=== PATIENT | female | born 1995 | race Caucasian/White ===

== ENCOUNTER 2018-09-17 17:00 | Emergency (ER) ==
[2018-09-17 17:03] VITALS: TEMP 98.3; BMI 24.4
--- NOTE | 2018-09-17 18:04 | ED.PDOC ---
General ED Provider: Dr. DAVID ESQUEDA Chief Complaint: Bite Stated Complaint: Believes bitten by spider. Works at [employer] and has developed redness and swelling on Lt forearm. Onset this past Tuesday when she sustained a spider bite but never saw a spider. Similar problem Rt forearm last year. Area of redness and swelling now extending beyond initial border she marked with redness volar aspect forearm moving proximal. Is 25 weeks . Time Seen by Physician: 16:00 Mode of Arrival: Walk-In Information Source: Patient Exam Limitations: No limitations Nursing and Triage Documentation Reviewed and Agree: Yes Does patient meet sepsis criteria?: No System Inflammatory Response Syndrome: Not Applicable Sepsis Protocol: For patient's 13 years and over: Temp is 96.8 and below OR 101 and greater Pulse >90 BPM Resp >20/minute Acutely Altered Mental Status Are patient's symptoms suggestive of a new infection, such as: -Pneumonia -Skin, Soft Tissue -Endocarditis -UTI -Bone, Joint Infection -Implantable Device -Acute Abdominal Infection -Wound Infection -Meningitis -Blood Stream Catheter Infection -Unknown Skin Complaint Exam - Skin/Soft Tissue Complaint/Exam Symptoms Are: Worse Timing: Constant Initial Severity: Moderate Current Severity: Severe Location: distal mid lt forearm Character: Reports: Redness, Swelling, Raised, Painful Aggravating: Reports: Unknown Alleviating: Reports: None Associated Signs and Symptoms: Reports: Tenderness, Red streaks Related History: Reports: Similar episode (lt forearm last year) Related Surgical History: Reports: None Recent Exposure to Others w/Similar Symptoms: No Skin Findings: Present: Erythema, Induration, Fluctuant mass (2X2 cm Fluctuant small central site susp for bite) Differential Diagnoses: Abscess, Cellulitis, MRSA, Other (Spider Bite) Review of Systems - Review Of Systems Constitutional: Reports: No symptoms Eyes: Reports: No symptoms Ears, Nose, Mouth, Throat: Reports: No symptoms Respiratory: Reports: No symptoms Cardiac: Reports: No symptoms GI: Reports: No symptoms : Reports: No symptoms Musculoskeletal: Reports: No symptoms Skin: Reports: Lesions, Lumps Neurological: Reports: No symptoms Endocrine: Reports: No symptoms Hematologic/Lymphatic: Reports: No symptoms All Other Systems: Reviewed and Negative Past Medical History - Past Medical History Previously Healthy: Yes Endocrine: Reports: None Cardiovascular: Reports: None Respiratory: Reports: None Hematological: Reports: None Gastrointestinal: Reports: None Genitourinary: Reports: None Neuro/Psych: Reports: None Musculoskeletal: Reports: None Cancer: Reports: None Last Menstrual Period: 07/06/18 - Surgical History General Surgical History: Reports: None - Family History Family History: Reports: None - Social History Smoking Status: Never smoker Hx Substance Use: No Alcohol Screening: None Physical Exam - Physical Exam Appearance: Well-appearing, No pain distress, Well-nourished Ill-appearing: None Pain Distress: Moderate Eyes: DEBRA, EOMI, Conjunctiva clear ENT: Ears normal, Nose normal, Oropharynx normal Respiratory: Airway patent, Breath sounds clear, Breath sounds equal, Respirations nonlabored Cardiovascular: RRR, Pulses normal, No rub, No murmur GI/: Soft, Nontender, No masses, Bowel sounds normal, No Organomegaly Musculoskeletal: Normal strength, ROM intact, No edema, No calf tenderness Skin: Warm, Dry, Normal color (Redness mid distal lt forearm volar aspect.) Neurological: Sensation intact, Motor intact, Reflexes intact, Cranial nerves intact, Alert, Oriented Psychiatric: Affect appropriate, Mood appropriate Critical Care Note - Critical Care Note Total Time (mins): 30 Course - Course Hematology/Chemistry: 09/17/18 18:12 09/17/18 18:12 Orders, Labs, Meds: Lab Review 09/17/18 09/17/18 18:12 18:12 WBC 10.99 H RBC 4.15 L Hgb 12.4 Hct 36.1 L MCV 87.0 MCH 29.9 MCHC 34.3 RDW Coeff of Fariha 13.9 Plt Count 257 Immature Gran % (Auto) 0.3 Neut % (Auto) 72.8 Lymph % (Auto) 20.2 Meigs % (Auto) 5.2 Eos % (Auto) 1.2 Baso % (Auto) 0.3 Immature Gran # (Auto) 0.0 Neut # (Auto) 8.0 H Lymph # (Auto) 2.2 Meigs # (Auto) 0.6 Eos # (Auto) 0.1 Baso # (Auto) 0.0 ESR 14 Sodium 133.2 L Potassium 3.92 Chloride 101.7 Carbon Dioxide 22.7 Anion Gap 12.72 BUN 15.5 Creatinine 0.48 L Estimated GFR (MDRD) 163.00 BUN/Creatinine Ratio 32.29 Glucose 87.0 Calcium 9.60 Orders Category Date Time Status BMP [BASIC METABOLIC PANEL] Stat LAB 09/17/18 18:12 Completed CBC W/ AUTO DIFF Stat LAB 09/17/18 18:12 Completed ESR Stat LAB 09/17/18 18:12 Completed Amoxicillin/Potassium Clav [Augmentin 875-125 mg Tab] MEDS 09/17/18 19:18 Discontinued 1 tab PO ONCE STA Medications Discontinued Medications Generic Name Dose Route Start Last Admin Trade Name Arti PRN Reason Stop Dose Admin Amoxicillin/Clavulanate Potassium 1 tab 09/17/18 19:18 09/17/18 19:22 Augmentin 875-125 Mg Tab PO 09/17/18 19:19 1 tab ONCE STA Administration Vital Signs: Temp Pulse Resp BP Pulse Ox 09/17/18 19:03 86 20 118/75 100 09/17/18 17:00 98.3 F 73 18 125/80 99 Departure - Departure Time of Disposition: 19:15 Disposition: HOME SELF-CARE Discharge Problem: Cellulitis, Abscess, Spider bite wound Instructions: Cellulitis (ED), Insect Bite or Sting (ED), Abscess (ED) Condition: Good Pt referred to PMD for follow-up: Yes (24-48 hrs) IPMP verified?: No Additional Instructions: Keep lt upper extremity elevated apply warm moist heat to area Monitor site for worsening If worsens return to ER See PCP in next 1-2 days Prescriptions: Amoxicillin/Potassium Clav [Augmentin 875-125 mg Tab] 1 tab PO Q12HR #14 tablet Allergies/Adverse Reactions: Allergies No Known Allergies Allergy (Unverified 09/17/18 17:03) Home Medications: Ambulatory Orders Amoxicillin/Potassium Clav [Augmentin 875-125 mg Tab] 1 tab PO Q12HR #14 tablet 09/17/18 Disposition Discussed With: Patient, Family
[2018-09-17 19:04] VITALS: BP 118/75
[2018-09-17] MEDS: AUGMENTIN 875-125 MG TAB PO STA (19:22)
== END 2018-09-17 19:32 | disposition home or self-care (01) ==
LOC: ED 17:00
DX: L02.414 Cutaneous abscess of left upper limb (principal); L03.114 Cellulitis of left upper limb; T63.301A Toxic effect of unspecified spider venom, accidental (unintentional), initial encounter; Z33.1 Pregnant state, incidental
CPT/HCPCS: 36415; 80048; 85025; 85651; 99283